=== PATIENT | female | born 1965 | race Caucasian/White ===

== ENCOUNTER 2016-12-17 09:38 | Emergency (ER) | END 2016-12-17 11:40 | disposition home or self-care (01) | DX: N30.00 Acute cystitis without hematuria (principal); E11.9 Type 2 diabetes mellitus without complications; I10 Essential (primary) hypertension; Z79.84 Long term (current) use of oral hypoglycemic drugs | CPT/HCPCS: 81003; Z7502 ==

== ENCOUNTER 2017-08-17 07:15 | Emergency (ER) | END 2017-08-17 08:51 | disposition home or self-care (01) ==

== ENCOUNTER 2018-09-11 20:41 | Emergency (ER) | payer OTHER ==
[~2018-09-11] VITALS: Ht 170.2 cm; Wt 69.8 kg
[~2018-09-11 20:41] MED LIST: ALBU18HF IH; BACTDS PO; BENA40TA56 PO; CARV6.2579 PO; CEPH-443 PO; CHOL500051 PO; CIPR500T4 PO; GABA300C16 PO; GLIP10TA14 PO; HYDR-3980 PO; INSU100I33 SQ; METF-849 PO; METF500T24 PO; METO-448 PO; NATE60TA PO; PHEN-538 PO; RANI150T35 PO; SIMV20TA20 PO; SITA100T11 PO; SUCR1TAB PO; ZOC10 PO
[2018-09-11 20:43] VITALS: Ht 170.2 cm; Wt 69.8 kg
[2018-09-11] MEDS ORDERED: hydrALAzine 20 MG INJ IV ONE (21:30)
[2018-09-12] MEDS ORDERED: ONDANSETRON 4 MG INJ IV PRN ×2 (02:00→02:30)
[2018-09-12] MEDS ORDERED: ACETAMINOPHEN 325 MG TAB PO PRN ×2 (02:00→02:30)
--- NOTE | 2018-09-12 02:11 | ERD ---
ER Documentation Chief Complaint Chief Complaint HEADACHE WITH DIZZINESS, NAUSEA; STARTING TODAY; NO FACIAL DROOP HPI This is a very pleasant 53-year female, with a headache dizzy nausea and numbness in the left side of her face along with mild chest pain. She noted that her blood pressure was severely elevated and that she is taking blood pressure medications. She denies any fevers or chills. She denies any nausea or vomiting. Denies any other current issues. Denies any focal neurological complaints. Headache is mild to moderate intensity. Chest pain is very mild and is since resolved upon arrival to the ER. ROS All systems reviewed and are negative except as per history of present illness. Medications Home Meds Reported Medications Metformin* (Glucophage*) 500 Mg Tab, 500 MG PO BID for 30 Days, #60 09/12/18 Insulin Glargine,Hum.rec.anlog (Basaglar Kwikpen U-100) 100 Unit/1 Ml Insuln.pen, 50 UNIT SQ QAM for 30 Days 09/12/18 Carvedilol* (Carvedilol*) 6.25 Mg Tablet, 6.25 MG PO BID for 30 Days, #60 09/12/18 Nateglinide* (Nateglinide*) 60 Mg Tablet, 60 MG PO TID for 30 Days, #90 09/12/18 Simvastatin (Simvastatin) 20 Mg Tablet, 20 MG PO DAILY for 30 Days, #30 09/12/18 Metformin Hcl* (Metformin Hcl*) 500 Mg Tablet, 500 MG PO WITH BREAKFAST DINNE, #60 TAB 07/10/15 Glipizide* (Glipizide*) 10 Mg Tablet, 10 MG PO BID, TAB 07/10/15 Albuterol Sulfate* (Ventolin HFA*) 18 Gm Hfa.aer.ad, 2 PUFF IH Q4H PRN for WHEEZING AND RESP DISTRESS, EA 05/03/14 Benazepril Hcl* (Benazepril Hcl*) 40 Mg Tablet, 40 MG PO DAILY, TAB 05/03/14 Discontinued Reported Medications Sitagliptin* (Januvia*) 100 Mg Tablet, 100 MG PO DAILY, #30 TAB 07/10/15 Simvastatin (Simvastatin) 10 Mg Tablet, 10 MG PO HS, TAB 05/03/14 Metoprolol Tartrate* (Lopressor*) 25 Mg Tab, 25 MG PO DAILY, TAB 05/03/14 Discontinued Scripts Ciprofloxacin Hcl* (Ciprofloxacin Hcl*) 500 Mg Tablet, 500 MG PO BID for 10 Days, TAB Prov:MAIKOL RANDALL PA-C 08/17/17 Phenazopyridine Hcl* (Pyridium*) 200 Mg Tab, 200 MG PO TID PRN for URINARY PAIN, #6 TAB Prov:HUMBERTO LINN PA-C 12/17/16 Cephalexin* (Keflex*) 500 Mg Capsule, 500 MG PO TID for 7 Days, CAP Prov:HUMBERTO LINN PA-C 12/17/16 Hydrocodone/Acetaminophen (Muir 10-325 Tablet) 1 Each Tablet, 1 TAB PO Q6H PRN for PAIN, #7 TAB Prov:ABDIRAHMAN NINO MD 12/06/15 Cephalexin* (Keflex*) 500 Mg Capsule, 500 MG PO QID for 7 Days, CAP Prov:ABDIRAHMAN NINO MD 12/06/15 Sulfamethoxazole-Trimethoprim* (Bactrim* DS) 800-160 Mg Tab, 1 TAB PO BID for 7 Days, TAB Prov:ABDIRAHMAN NINO MD 12/06/15 Sucralfate (Carafate) 1 G Tablet, 1 GM PO Q6, #60 TAB Prov:HUMBERTO JACOME 07/10/15 Ranitidine Hcl* (Zantac*) 150 Mg Tablet, 150 MG PO BID, #60 TAB Prov:HUMBERTO JACOME 07/10/15 Allergies Allergies: Coded Allergies: No Known Allergy (Unverified , 09/12/18) PMhx/Soc History of Surgery: Yes (TUBAL LIGATION) Anesthesia Reaction: No Hx Neurological Disorder: No Hx Respiratory Disorders: No Hx Cardiac Disorders: Yes (HTN) Hx Psychiatric Problems: No Hx Miscellaneous Medical Probl: Yes (DM) Hx Alcohol Use: No Hx Substance Use: No Hx Tobacco Use: No Smoking Status: Never smoker Physical Exam Vitals Vital Signs Date Temp Pulse Resp B/P (MAP) Pulse Ox O2 O2 Flow FiO2 Time Delivery Rate 09/11/18 96 19 122/75 100 Room Air 23:00 (91) 09/11/18 97.8 93 19 218/113 100 20:43 (148) Physical Exam Const: No acute distress Head: Atraumatic Eyes: Normal Conjunctiva ENT: Normal External Ears, Nose and Mouth. Neck: Full range of motion. No meningismus. Resp: Clear to auscultation bilaterally Cardio: Regular rate and rhythm, no murmurs Abd: Soft, non tender, non distended. Normal bowel sounds Skin: No petechiae or rashes Back: No midline or flank tenderness Ext: No cyanosis, or edema Neur: Awake and alert Psych: Normal Mood and Affect Result Diagram: 09/11/18213609/11/182206 Results 24 hrs Laboratory Tests Test 09/11/18 21:37 09/11/18 22:07 White Blood Count 7.1 10^3/ul Red Blood Count 3.90 10^6/ul Hemoglobin 11.8 g/dl Hematocrit 32.7 % Mean Corpuscular Volume 83.8 fl Mean Corpuscular Hemoglobin 30.3 pg Mean Corpuscular Hemoglobin Concent 36.1 g/dl Red Cell Distribution Width 11.5 % Platelet Count 182 10^3/UL Mean Platelet Volume 8.9 fl Immature Granulocytes % 0.300 % Neutrophils % 43.7 % Lymphocytes % 40.7 % Monocytes % 9.5 % Eosinophils % 5.4 % Basophils % 0.4 % Nucleated Red Blood Cells % 0.0 /100WBC Immature Granulocytes # 0.020 10^3/ul Neutrophils # 3.1 10^3/ul Lymphocytes # 2.9 10^3/ul Monocytes # 0.7 10^3/ul Eosinophils # 0.4 10^3/ul Basophils # 0.0 10^3/ul Nucleated Red Blood Cells # 0.0 10^3/ul Prothrombin Time 13.5 Sec Prothrombin Time Ratio 1.1 INR International Normalized Ratio 1.02 Activated Partial Thromboplast Time 29.4 Sec Sodium Level 130 mmol/L Potassium Level 3.5 mmol/L Chloride Level 94 mmol/L Carbon Dioxide Level 29 mmol/L Anion Gap 7 Blood Urea Nitrogen 8 mg/dl Creatinine 0.40 mg/dl Est Glomerular Filtrat Rate mL/min > 60 mL/min Glucose Level 111 mg/dl Calcium Level 9.3 mg/dl Troponin I < 0.012 ng/ml Current Medications Medications Dose Sig/Branden Start Time Status Last (Trade) Ordered Route PRN Stop Time Admin Dose Reason Admin Hydralazine 20 mg ONCE ONCE 09/11/18 DC 8/5/19 HCl IV 21:30 09/11/18 21:35 (Apresoline) 21:31 Ondansetron 4 mg ER BRIDGE 09/12/18 HCl (Zofran PRN IV 02:00 09/13/18 Inj) NAUSEA/VOMITI 01:59 NG 650 mg ER BRIDGE 09/12/18 Acetaminophen PRN PO 02:00 09/13/18 (Tylenol .MILD PAIN 01:59 Tab) 1-3 OR TEMP Sodium 500 ml @ Q1H ONCE 09/12/18 UNV Chloride 500 mls/hr IV 02:30 09/12/18 03:29 Benazepril 40 mg DAILY PO 09/12/18 UNV HCl 09:00 (Lotensin) Carvedilol 6.25 mg BID PO 09/12/18 UNV (Coreg) 09:00 Insulin 50 unit QAM SC 09/12/18 UNV Glargine 09:00 (Lantus) 20 mg DAILY PO 09/12/18 UNV Miscellaneous 09:00 Information IV Flush 3 ml PER 09/12/18 UNV (NS 3 ml) PROTOCOL IV 02:30 Ondansetron 4 mg Q6H PRN 09/12/18 UNV HCl (Zofran IV 02:30 Inj) NAUSEA/VOMITI NG Aspirin 81 mg DAILY PO 09/12/18 UNV (Aspirin) 09:00 1 tab Q5M PRN 09/12/18 UNV Nitroglycerin SL .CHEST 02:30 PAIN (Nitroglyceri n (Sl Tab) 0.4 Mg) 650 mg Q6H PRN 09/12/18 UNV Acetaminophen PO .PAIN 1-3 02:30 (Tylenol OR TEMP Tab) Morphine 2 mg Q4H PRN 09/12/18 UNV Sulfate IV .PAIN 02:30 (morphine) 7-10 Docusate 100 mg Q12H PRN 09/12/18 UNV Sodium PO 02:30 (Colace) .CONSTIPATION Bisacodyl 5 mg DAILY PRN 09/12/18 UNV (Dulcolax) PO 02:30 .CONSTIPATION Discontinue ONCE ONCE 09/12/18 UNV Miscellaneous current oral XX 02:30 09/12/18 sulfonylur... 02:31 Information (* Miscellaneous Pharmacy Order) Diagnostic 1 ea 02 XX 8/7/19 UNV Test (Pha) 02:00 (Accu-Chek) ONCE ONCE 09/12/18 UNV Miscellaneous HYPOGLYCEMIA XX 02:30 09/12/18 PROTOCOL 02:31 Information w... (* Miscellaneous Pharmacy Order) Insulin NOVOLOG WITH MEALS 09/12/18 UNV Aspart *MILD* BEDTIME SC 08:00 (Novolog ALGORITHM Insulin Pen) Discontinue ONCE ONCE 09/12/18 UNV Miscellaneous all previ... XX 02:30 09/12/18 02:31 Information (* Miscellaneous Pharmacy Order) Procedures/MDM EKG: Rate/Rhythm: Normal Sinus Rhythm QRS, ST, T-waves: No changes consistent w/ acute ischemia Impression: No evidence of ischemia or arrhythmia Chest X-ray 1V Interpreted by me: Soft Tissue: No acute abnormalities Bones: No acute abnormalities Mediastinum/Cardiac Silhouette/Lungs: No acute abnormalities Medical decision making: Patient's symptoms are concerning for cardiac cause will require inpatient workup and continuous monitoring. Further w/u for ischemia, arrhythmia, PE or dissection will be deferred to the inpatient team. Accepting Care Team: Current data and ongoing care discussed. Time: 2:01 AM Primary Provider: Dr. Rosas Consulting: Deferred to inpatient team Outstanding Data: none Departure Diagnosis: Primary Impression: Chest pain Chest pain type: unspecified Qualified Codes: R07.9 - Chest pain, unspecified Condition: Serious HUMBERTO JACOME Sep 12, 2018 02:11
[2018-09-12] MEDS ORDERED: DOCUSATE SODIUM 100 MG CAP PO PRN (02:30)
[2018-09-12] MEDS ORDERED: SOD CHLORIDE 0.9% 500 ML IV ONE (02:30)
[2018-09-12] MEDS ORDERED: BISACODYL (EC) 5 MG TAB PO PRN (02:30)
[2018-09-12] MEDS ORDERED: NACL 0.9% 3 ML SYG IV SCH (02:30)
[2018-09-12] MEDS ORDERED: morphine 2 MG INJ IV PRN (02:30)
[2018-09-12] MEDS ORDERED: NITROGLYCERIN (SL) 0.4 MG TAB SL PRN (02:30)
[2018-09-12] MEDS ORDERED: GLUCOSE GEL 15 GRAM TUBE BUCCAL PRN (03:00)
[2018-09-12] MEDS ORDERED: GLUCOSE GEL 15 GRAM TUBE PO PRN ×2 (03:00)
[2018-09-12] MEDS ORDERED: DEXTROSE 50% 50 ML SYRINGE IV PRN ×2 (03:00)
[2018-09-12] MEDS ORDERED: GLUCAGON 1 MG INJ IM PRN (03:00)
--- NOTE | 2018-09-12 06:19 | HP ---
Date/Time of Note Date/Time of Note DATE: 09/12/18 TIME: 05:53 Assessment/Plan VTE Prophylaxis SCD applied (from Nsg): Yes Pharmacological prophylaxis: NA/contraindicated Pharm contraindication: low risk/ambulating Lines/Catheters IV Catheter Type (from Nrsg): Saline Lock Assessment/Plan Hospital Course This is a 53-year-old female being admitted to the telemetry floor for: #1 chest pain: Rule out ACS versus uncontrolled hypertension: Patient did present blood pressures in the 200s. Will check cardiac enzymes x3, first that was negative. Check echocardiogram. Cardiology consultation Dr. Knapp will check hemoglobin A 1C, panel, TSH PRN nitro/morphine. #2 left-sided numbness with headache: Possibly secondary to underlying uncontrolled hypertension versus neurologic etiology. CT the brain was negative for any acute abnormalities. She does not have any focal neurological deficits currently on exam. Will check an MRI of the brain, cervical spine as patient still continues to have left-sided numbness despite blood pressure being under better control at this point. #3 accelerated hypertension: Patient presented with systolic blood pressure in the 200s. Will resume carvedilol and benazepril. On monitor patient blood pressure closely. #4 diabetes mellitus: We will resume home insulin, will hold home oral medications. Will check hemoglobin A1c, insulin sliding scale #5 Hyperlipidemia: Continue statin, check lipid panel #6 DVT GI prophylaxis: SCDs, no GI prophylaxis indicated Further treatment strategy will be implemented as per the clinical course Result Diagram: 09/11/18213609/11/187 Results 24hrs Laboratory Tests Test 09/11/18 21:37 09/11/18 22:07 09/12/18 03:12 White Blood Count 7.1 # Red Blood Count 3.90 L Hemoglobin 11.8 L Hematocrit 32.7 #L Mean Corpuscular Volume 83.8 Mean Corpuscular Hemoglobin 30.3 Mean Corpuscular Hemoglobin Concent 36.1 Red Cell Distribution Width 11.5 Platelet Count 182 Mean Platelet Volume 8.9 Immature Granulocytes % 0.300 Neutrophils % 43.7 Lymphocytes % 40.7 Monocytes % 9.5 Eosinophils % 5.4 Basophils % 0.4 Nucleated Red Blood Cells % 0.0 Immature Granulocytes # 0.020 Neutrophils # 3.1 Lymphocytes # 2.9 Monocytes # 0.7 Eosinophils # 0.4 Basophils # 0.0 Nucleated Red Blood Cells # 0.0 Prothrombin Time 13.5 Prothrombin Time Ratio 1.1 INR International Normalized Ratio 1.02 Activated Partial Thromboplast Time 29.4 Sodium Level 130 L Potassium Level 3.5 Chloride Level 94 L Carbon Dioxide Level 29 Anion Gap 7 Blood Urea Nitrogen 8 Creatinine 0.40 L Est Glomerular Filtrat Rate mL/min > 60 Glucose Level 111 Calcium Level 9.3 Troponin I < 0.012 < 0.012 Creatine Kinase 72 Creatine Kinase Index 1.4 Creatinine Kinase MB (Mass) 0.98 HPI/ROS Admit Date/Time Admit Date/Time Hx of Present Illness Chief complaint: Elevated blood pressure, headache This is a 53-year female who presents to the emergency department with comp laints of weakness along with left-sided numbness and chest pain that started at 1 PM yesterday. Patient reports that her blood pressures were noted to be high at home. She does report that she has been dealing with headaches over the last few days. She denies any nausea vomiting or diarrhea. She denies any trouble with her speech or weakness of her bilateral upper or lower extremities. Allergies: NKDA Medications: Benazepril 40 mg p.o. daily Carvedilol 6.25 mg p.o. twice daily Lantus 50 units subcu a.m. Simvastatin 20 mg p.o. daily Glipizide 10 mg p.o. twice daily Ventolin HFA 18 g 2 puffs every 4 as needed Metformin 500 mg breakfast and dinner Nateglinide 60 mg p.o. 3 times daily ROS Const: As per HPI Eyes : No pain discharge or redness or change in visual acuity ENT: No pain, sore throat, congestion, congestion, dysphagia or discharge Respiratory: No shortness of breath, cough, sputum, wheezing, or pleuritic pain Cardiovascular: As per HPI GI : no change in appetite, abdominal pain, nausea, vomiting, diarrhea, constipation, or change in the color his stool Genitourinary: No dysuria, hematuria, flank pain , discharge or CVA tenderness Musculoskeletal: No joint pain, back pain, neck pain, restricted range of motion in neck or joints Skin: No rash, bruising or hives Neuro: As per HPI Endocrine: No polyuria, polydipsia, temperature intolerance Psych: No hallucination, depression, anxiety or suicidal ideation PMH/Family/Social Past Medical History Diabetes mellitus Hypertension Hyperlipidemia Gastritis Medications Current Medications Ondansetron HCl (Zofran Inj) 4 mg ER BRIDGE PRN IV NAUSEA/VOMITING; Start 09/12/18 at 02:00; Stop 09/13/18 at 01:59 Acetaminophen (Tylenol Tab) 650 mg ER BRIDGE PRN PO .MILD PAIN 1-3 OR TEMP; Start 09/12/18 at 02:00; Stop 09/13/18 at 01:59 Benazepril HCl (Lotensin) 40 mg DAILY PO ; Start 09/12/18 at 09:00 Carvedilol (Coreg) 6.25 mg BID PO ; Start 09/12/18 at 09:00 Insulin Glargine (Lantus) 50 units QAM SC ; Start 09/12/18 at 09:00 Atorvastatin Calcium (Lipitor) 10 mg DAILY@21 PO ; Start 09/12/18 at 21:00 IV Flush (NS 3 ml) 3 ml PER PROTOCOL IV ; Start 09/12/18 at 02:30 Ondansetron HCl (Zofran Inj) 4 mg Q6H PRN IV NAUSEA/VOMITING; Start 09/12/18 at 02:30 Aspirin (Aspirin) 81 mg DAILY PO ; Start 09/12/18 at 09:00 Nitroglycerin (Nitroglycerin (Sl Tab) 0.4 Mg) 1 tab Q5M PRN SL .CHEST PAIN; Start 09/12/18 at 02:30 Acetaminophen (Tylenol Tab) 650 mg Q6H PRN PO .PAIN 1-3 OR TEMP; Start 09/12/18 at 02:30 Morphine Sulfate (morphine) 2 mg Q4H PRN IV .PAIN 7-10; Start 09/12/18 at 02:30 Docusate Sodium (Colace) 100 mg Q12H PRN PO .CONSTIPATION; Start 09/12/18 at 02:30 Bisacodyl (Dulcolax) 5 mg DAILY PRN PO .CONSTIPATION; Start 09/12/18 at 02:30 Diagnostic Test (Pha) (Accu-Chek) 1 ea 02 XX ; Start 09/13/18 at 02:00 Insulin Aspart (Novolog Insulin Pen) NOVOLOG *MILD* ALGORITHM WITH MEALS BEDTIME SC ; Start 09/12/18 at 08:00 Miscellaneous Information 1 ea NOTE XX ; Start 09/12/18 at 03:00 Glucose (Glutose) 15 gm Q15M PRN PO DECREASED GLUCOSE; Start 09/12/18 at 03:00 Glucose (Glutose) 22.5 gm Q15M PRN PO DECREASED GLUCOSE; Start 09/12/18 at 03:00 Dextrose (D50w Syringe) 25 ml Q15M PRN IV DECREASED GLUCOSE; Start 09/12/18 at 03:00 Dextrose (D50w Syringe) 50 ml Q15M PRN IV DECREASED GLUCOSE; Start 09/12/18 at 03:00 Glucagon (Glucagen) 1 mg Q15M PRN IM DECREASED GLUCOSE; Start 09/12/18 at 03:00 Glucose (Glutose) 15 gm Q15M PRN BUCCAL DECREASED GLUCOSE; Start 09/12/18 at 03:00 Coded Allergies: No Known Allergy (Unverified , 09/12/18) Past Surgical History Bilateral cataract surgery Family History Significant Family History: no pertinent family hx Social History Alcohol Use: none Smoking Status: Never smoker Drug Use: none Exam/Review of Systems Vital Signs Vitals Vital Signs Date Temp Pulse Resp B/P (MAP) Pulse Ox O2 O2 Flow FiO2 Time Delivery Rate 09/12/18 97 18 133/87 99 Room Air 03:30 (102) 09/11/18 97.8 20:43 Exam Exam General: Patient is currently lying in bed in no acute distress HEENT: Atraumatic, normocephalic. The pupils are equal, round and reactive. Extraocular motor are intact Neck: Supple with full range of motion. No rigidity or meningismus Chest: Nontender Lungs: Clear to auscultation bilaterally no crackles rales or wheezing Heart: Normal S1-S2, Regular rhythm and rate. No murmur, S3, or S4 Abdomen: Soft , nontender, nondistended , bowel sounds are present. No guarding no rebound tenderness , No masses or organomegaly. No costovertebral temporal angle mass Extremities: Normal to inspection, no edema no cyanosis Neurologic: Normal mental status, speech normal, cranial nerves II through XII are intact, motor and sensory are intact, no focal neurologic deficits or weakness, subjective numbness of the left upper and lower extremity Additional Comments EKG: Normal sinus rhythm at approximately 78 bpm, no ST or T wave abnormals concerning for acute ischemia PROCEDURE: CT Brain without contrast. CLINICAL INDICATION: Headache. TECHNIQUE: A CT of the brain was performed utilizing axial sections from the skull base through the vertex without contrast. Multiplanar re-formations were generated. DICOM images are available. Images were reviewed on a high-resolution PACS workstation. CTDIvol: 38.38 mGy. DLP: 634.23 mGy-cm. One or more of the following dose reduction techniques were used: - Automated exposure control. - Adjustment of the mA and/or kV according to patient size. - Use of iterative reconstruction technique. COMPARISON: None available FINDINGS: There is no cerebral volume loss. No hydrocephalus is seen. There is no mass effect. No acute intracranial hemorrhage is identified. There is no extra-axial collection. Luna-white matter differentiation is preserved. There is patchy low attenuation in the supratentorial white matter, a nonspecific finding which most likely represents the sequela of mild chronic microvascular ischemic disease. There are minimal arterial calcifications. There is no significant mucosal disease in the paranasal sinuses. The visualized mastoid air cells are clear. The ossesous structures are unremarkable. The extracranial soft tissues are unremarkable. IMPRESSION: No acute intracranial pathology. Mild chronic microvascular ischemic changes. RPTAT: HTAR .Rober Clark MD, MD Date Time Electronically viewed and signed by .Rober Clark MD, on 09/12/2018 00:22 .R/ CC: HUMBERTO JACOME [id number] KAN PIERCE Sep 12, 2018 06:13
[2018-09-12] MEDS ORDERED: INSULIN GLARGINE [LANTus] (100 UNITS/ML) SYG SC SCH (09:00)
[2018-09-12] MEDS ORDERED: ASPIRIN 81 MG TAB PO SCH (09:00)
[2018-09-12] MEDS ORDERED: BENAZEPRIL 40 MG TAB PO SCH (09:00)
[2018-09-12] MEDS: INSULIN ASPART [NOVOLOG] 3 ML PEN SC SCH ×2 (10:55→12:49)
--- NOTE | 2018-09-12 11:51 | QN ---
Documentation Comment 53-year-old female with a history of hypertension, dyslipidemia, type 2 di abetes, admitted with left-sided numbness, headache and chest pain. Patient's blood pressure on arrival was 218/113. Head CT is negative for any acute intracranial events. Continue aspirin prophylaxis. Currently patient with no symptoms. Serial troponin x3, EKG negative for ACS. Follow-up cardiology recommendations. A1c noted. Add bolus insulin. Continue home Lantus dose. Patient symptoms are also somewhat consistent with neuropathy secondary to underlying diabetes. Will do gabapentin trial. We will also obtain some vitamin D, B12 levels. Patient is seen in collaboration with Dr. Johnston. JOSE M SANTIAGO NP Sep 12, 2018 11:51
[2018-09-12] MEDS ORDERED: INSULIN ASPART [NOVOLOG] 3 ML PEN SC SCH (12:00)
[2018-09-12] MEDS ORDERED: GABAPENTIN 100 MG CAP PO SCH (13:00)
--- NOTE | 2018-09-12 13:08 | RADRPT ---
Echocardiogram Report Patient Name: ROXANA HERNANDEZPatient ID: [id number] : 1965 (53y 2m)Study Date: 09/12/2018 7:06:28 AM Gender: FAccession #: [id number] Tech: NEIL Hunter Location: [facility] Ref.Physician: KAN PIERCE Height(Cm): BSA: Weight(Kg): Quality: AdequateOrder Physician: KAN PIERCE Account #: Procedures: Echocardiographic Report: Transthoracic echocardiogram with complete 2D, M-Mode, and doppler examination. Indications: Chest Pain. Measurements: 2D/M Mode Doppler Measurement Value Normal Range Measurement Value Normal Range LVIDd 2D 3.9 [ 3.8 - 5.2 ] cm AV Peak Odilon 1.0 [ 100.0 - 170.0 ] cm/sec LVIDs 2D 2.7 [ 2.2 - 3.5 ] cm AV Peak PG 4.0 [ 2.0 - 9.0 ] mmHg IVSd 2D 1.0 [ 0.6 - 0.9 ] cm LVOT Peak Odilon 0.9 [ 70.0 - 110.0 ] cm/sec IVS/LVPW 2D 1.1 ratio LVOT Peak PG 3.0 [ 2.0 - 6.0 ] mmHg AoR Diam 2D 3.0 [ 2.3 - 3.1 ] cm TR Peak Odilon 2.1 [ 100.0 - 280.0 ] cm/sec LA/Ao 2D 1 ratio TR Peak PG 17.0 mmHg LA Dimen 2D 3.0 [ 2.7 - 3.8 ] cm RVSP 20.0 [ 10.0 - 36.0 ] mmHg RA Pressure 3.0 mmHg Findings: Left Ventricle: Normal left ventricular systolic function. Normal left ventricular cavity size. Mild concentric left ventricular hypertrophy. Ejection fraction is visually estimated at 60 %. Tissue Doppler/Mitral Doppler indices are within normal limits. Right Ventricle: Normal right ventricular size. Normal right ventricular systolic function. Left Atrium: The left atrium is normal in size. Right Atrium: The right atrium is normal in size. Mitral Valve: Normal appearance and function of the mitral valve with trace physiologic regurgitation. Aortic Valve: Aortic sclerosis without significant stenosis. No aortic regurgitation. Tricuspid Valve: Normal appearance and function of the tricuspid valve with trace physiologic regurgitation. Normal right ventricular systolic pressure. The estimated Peak RVSP is 20 mmHg. Pulmonic Valve: Pulmonic valve not well visualized. Pericardium: Normal pericardium with no significant pericardial effusion. Aorta: Normal aortic root. IVC: Normal size and normal respiratory collapse consistent with normal right atrial pressure. Conclusions: Normal left ventricular systolic function. Normal left ventricular cavity size. Mild concentric left ventricular hypertrophy. Ejection fraction is visually estimated at 60 %. Tissue Doppler/Mitral Doppler indices are within normal limits. No significant valvular stenosis or regurgitation seen. The estimated Peak RVSP is 20 mmHg. Normal size and normal respiratory collapse consistent with normal right atrial pressure. Electronically Signed By: Jamison Brasher 2018-09-12 13:08:28 PDT
--- NOTE | 2018-09-12 14:15 | PDOCDIS ---
Discharge Instructions CONDITION [id number] Patient Condition: [id number] Stable HOME CARE INSTRUCTIONS: [id number] Your diet recommendation is: [id number] Carbohydrate controlled/low-cholesterol diet. FOLLOW UP/APPOINTMENTS Follow-up Plan 1.YOU HAVE RECEIVED A MEDICAL TREATMENT AT [facility] AND YOUR CONDITION IS STABLE AND CAN BE FOLLOWED UP OUTPATIENT. FURTHER FOLLOW-UPS CAN WAIT UNTIL YOU ARE SEEN IN YOUR DOCTORS OFFICE WITHIN THE NEXT 1-2 DAYS. IT IS YOUR RESPONSIBILITY TO MAKE AN APPOINTMENT FOR FOLLOW-UP CARE. IF YOU HAVE A PRIMARY DOCTOR --you should call your primary doctor in 1-2 days and schedule an appointment IF YOU DO NOT HAVE A PRIMARY DOCTOR YOU CAN CALL OUR PHYSICIAN REFERRAL HOTLINE AT IF YOU CAN NOT AFFORD TO SEE A PHYSICIAN YOU CAN CHOSE FROM THE FOLLOWING [facility] [address] [facility] [address] [facility] [address] [facility] [address] [facility] [address] [facility]. [address]. Call 911 or go to the nearest emergency room if experiencing loss of consciousness, dizziness, chest pain, shortness of breath, vomiting/abdominal pain, speech difficulties, motor weakness or any unusual symptoms. JOSE M SANTIAGO NP Sep 12, 2018 14:15
--- NOTE | 2018-09-12 14:24 | DS ---
Date/Time of Note Date/Time of Note DATE: 09/12/18 TIME: 14:22 Discharge Summary Admission/Discharge Info Admit Date/Time Discharge Date/Time Discharge Diagnosis Chest pain/numbness, likely secondary to underlying diabetic neuropathy/vitamin D deficiency. ACS ruled out. Hypertension dyslipidemia type 2 diabetes Diabetic neuropathy Vitamin D deficiency Patient Condition: Stable Consults Procedures 09/11/2018: Brain CT: IMPRESSION: No acute intracranial pathology. Mild chronic microvascular ischemic changes. 09/12/2018: 2D echocardiogram: Conclusions: Normal left ventricular systolic function. Normal left ventricular cavity size. Mild concentric left ventricular hypertrophy. Ejection fraction is visually estimated at 60 %. Tissue Doppler/Mitral Doppler indices are within normal limits. No significant valvular stenosis or regurgitation seen. The estimated Peak RVSP is 20 mmHg. Normal size and normal respiratory collapse consistent with normal right atrial pressure. Electronically Signed By: Amari Martinez 2018-09-12 13:08:28 PDT Dictated By: AMARI MARTINEZ Signed By: AMARI MARTINEZ Hospital Course 53-year-old female with a history of hypertension, dyslipidemia, type 2 diabe simona, admitted with left-sided numbness, headache and chest pain. Patient's blood pressure on arrival was 218/113. Patient's head CT was negative for any acute intracranial events. Chest x-ray negative for acute cardiopulmonary disease. Patient has 3 sets of negative troponin. Her EKG without any ST or T wave changes. Patient's 2D echocardiogram normal. Patient was evaluated by deck lid fitter and no further inpatient cardiac work-up was needed. Her chest pain completely resolved. Patient was also noted with poorly controlled diabetes with A1c 11.0 with likely diabetic neuropathy. Patient responded to gabapentin and PRN pain medication. She is now feeling back to normal and is eager to be discharged home. At this time, we will send patient home with gabapentin and vitamin D supplementation as she was also noted with a low vitamin D level. Most likely culprit of chest pain and numbness is underlying neuropathy with diabetes and low vitamin D level. Approximately 60 m spent on coordinating the discharge on this patient. Patient was seen in collaboration with Dr. Preston Garcia Active Scripts Cholecalciferol (Vitamin D3) (Vitamin D3) 50,000 Unit Capsule, 61155 UNIT PO .QWEDNESDAY, #12 CAP Prov:SANTIAGO,JOSE M V. WIDE LOAD ESCORT 09/12/18 Gabapentin* (Gabapentin*) 300 Mg Capsule, 300 MG PO TID, #90 CAP Prov:SANTIAGO,JOSE M V. WIDE LOAD ESCORT 09/12/18 Reported Medications Insulin Glargine,Hum.rec.anlog (Basaglar Kwikpen U-100) 100 Unit/1 Ml Insuln.pen, 50 UNIT SQ QAM for 30 Days 09/12/18 Carvedilol* (Carvedilol*) 6.25 Mg Tablet, 6.25 MG PO BID for 30 Days, #60 09/12/18 Nateglinide* (Nateglinide*) 60 Mg Tablet, 60 MG PO TID for 30 Days, #90 09/12/18 Simvastatin (Simvastatin) 20 Mg Tablet, 20 MG PO DAILY for 30 Days, #30 09/12/18 Metformin Hcl* (Metformin Hcl*) 500 Mg Tablet, 500 MG PO WITH BREAKFAST DINNE, #60 TAB 07/10/15 Glipizide* (Glipizide*) 10 Mg Tablet, 10 MG PO BID, TAB 07/10/15 Albuterol Sulfate* (Ventolin HFA*) 18 Gm Hfa.aer.ad, 2 PUFF IH Q4H PRN for WHEEZING AND RESP DISTRESS, EA 05/03/14 Benazepril Hcl* (Benazepril Hcl*) 40 Mg Tablet, 40 MG PO DAILY, TAB 05/03/14 Discontinued Reported Medications Metformin* (Glucophage*) 500 Mg Tab, 500 MG PO BID for 30 Days, #60 09/12/18 Sitagliptin* (Januvia*) 100 Mg Tablet, 100 MG PO DAILY, #30 TAB 07/10/15 Simvastatin (Simvastatin) 10 Mg Tablet, 10 MG PO HS, TAB 05/03/14 Metoprolol Tartrate* (Lopressor*) 25 Mg Tab, 25 MG PO DAILY, TAB 05/03/14 Discontinued Scripts Ciprofloxacin Hcl* (Ciprofloxacin Hcl*) 500 Mg Tablet, 500 MG PO BID for 10 Days, TAB Prov:MAIKOL RANDALL PA-C 08/17/17 Phenazopyridine Hcl* (Pyridium*) 200 Mg Tab, 200 MG PO TID PRN for URINARY PAIN, #6 TAB Prov:HUMBERTO LINN PA-C 12/17/16 Cephalexin* (Keflex*) 500 Mg Capsule, 500 MG PO TID for 7 Days, CAP Prov:HUMBERTO LINN PA-C 12/17/16 Hydrocodone/Acetaminophen ([place] 10-325 Tablet) 1 Each Tablet, 1 TAB PO Q6H PRN for PAIN, #7 TAB Prov:ABDIRAHMAN NINO MD 12/06/15 Cephalexin* (Keflex*) 500 Mg Capsule, 500 MG PO QID for 7 Days, CAP Prov:ABDIRAHMAN NINO MD 12/06/15 Sulfamethoxazole-Trimethoprim* (Bactrim* DS) 800-160 Mg Tab, 1 TAB PO BID for 7 Days, TAB Prov:ABDIRAHMAN NINO MD 12/06/15 Sucralfate (Carafate) 1 G Tablet, 1 GM PO Q6, #60 TAB Prov:HUMBERTO JACOME 07/10/15 Ranitidine Hcl* (Zantac*) 150 Mg Tablet, 150 MG PO BID, #60 TAB Prov:HUMBERTO JACOME 07/10/15 Follow-up Plan 1.YOU HAVE RECEIVED A MEDICAL TREATMENT AT [facility] AND YOUR CONDITION IS STABLE AND CAN BE FOLLOWED UP OUTPATIENT. FURTHER FOLLOW-UPS CAN WAIT UNTIL YOU ARE SEEN IN YOUR DOCTORS OFFICE WITHIN THE NEXT 1-2 DAYS. IT IS YOUR RESPONSIBILITY TO MAKE AN APPOINTMENT FOR FOLLOW-UP CARE. IF YOU HAVE A PRIMARY DOCTOR --you should call your primary doctor in 1-2 days and schedule an appointment IF YOU DO NOT HAVE A PRIMARY DOCTOR YOU CAN CALL OUR PHYSICIAN REFERRAL HOTLINE AT IF YOU CAN NOT AFFORD TO SEE A PHYSICIAN YOU CAN CHOSE FROM THE FOLLOWING [facility] [place] [address] [facility]. [facility] [address] [facility] [address] [facility] [address] [facility] [address] [facility]. [facility]. [address] [place] 2. Call 911 or go to the nearest emergency room if experiencing loss of consciousness, dizziness, chest pain, shortness of breath, vomiting/abdominal pain, speech difficulties, motor weakness or any unusual symptoms. Primary Care Provider Santo Dixon Pending Labs Laboratory Tests Test 09/11/18 21:37 09/11/18 22:07 09/12/18 03:12 09/12/18 05:41 White Blood 7.1 Count 10^3/ul (4.8-10 .8) Red Blood 3.90 Count 10^6/ul (4.20-5 .40) Hemoglobin 11.8 g/dl (12.0-16.0 ) Hematocrit 32.7 % (37.0-47.0) Mean 83.8 Corpuscular fl (82.0-101.0) Volume Mean 30.3 Corpuscular pg (29.0-33.0) Hemoglobin Mean 36.1 Corpuscular g/dl (32.0-37.0 Hemoglobin Conc ) ent Red Cell 11.5 Distribution % (11.5-14.5) Width Platelet Count 182 10^3/UL (140-41 5) Mean Platelet 8.9 Volume fl (7.4-10.4) Immature 0.300 Granulocytes % % (0.001-0.429) Neutrophils % 43.7 % (39.0-77.0) Lymphocytes % 40.7 % (15.0-51.0) Monocytes % 9.5 % (0.0-11.0) Eosinophils % 5.4 % (0.0-7.0) Basophils % 0.4 % (0.0-2.0) Nucleated Red 0.0 Blood Cells % /100WBC (0.0-0. 0) Immature 0.020 Granulocytes # 10^3/ul (0.0-0. 031) Neutrophils # 3.1 10^3/ul (1.6-7. 5) Lymphocytes # 2.9 10^3/ul (0.8-2. 9) Monocytes # 0.7 10^3/ul (0.3-0. 9) Eosinophils # 0.4 10^3/ul (0.0-0. 5) Basophils # 0.0 10^3/ul (0.0-0. 1) Nucleated Red 0.0 Blood Cells # 10^3/ul (0.0-0. 0) Prothrombin 13.5 Time Sec (11.9-14.9 ) Prothrombin 1.1 Time Ratio INR 1.02 International Normalized Rati o Activated 29.4 Partial Thrombo Sec (23.0-35.0 plast Time ) Sodium Level 130 mmol/L (135-14 4) Potassium 3.5 Level mmol/L (3.5-5. 1) Chloride Level 94 mmol/L (97-110 ) Carbon Dioxide 29 Level mmol/L (21-31) Anion Gap 7 (5-13) Blood Urea 8 mg/dl (7-20) Nitrogen Creatinine 0.40 mg/dl (0.44-1. 00) Est Glomerular > 60 Filtrat mL/min (>60) Rate mL/min Glucose Level 111 mg/dl (70-220) Calcium Level 9.3 mg/dl (8.4-10. 2) Troponin I < 0.012 < 0.012 ng/ml (0.000-0 ng/ml (0.000-0 .120) .120) Creatine 72 Kinase IU/L (23-200) Creatine Kinase 1.4 Index Creatinine 0.98 Kinase MB ng/ml (0.0-2.4 (Mass) ) Vitamin D 19.5 1,25-Dihydroxy ng/ml (30-100) Test 09/12/18 05:45 09/12/18 10:23 09/12/18 10:52 09/12/18 12:47 White Blood 6.8 Count 10^3/ul (4.8-10 .8) Red Blood 4.09 Count 10^6/ul (4.20-5 .40) Hemoglobin 12.5 g/dl (12.0-16.0 ) Hematocrit 34.6 % (37.0-47.0) Mean 84.6 Corpuscular fl (82.0-101.0) Volume Mean 30.6 Corpuscular pg (29.0-33.0) Hemoglobin Mean 36.1 Corpuscular g/dl (32.0-37.0 Hemoglobin Conc ) ent Red Cell 11.7 Distribution % (11.5-14.5) Width Platelet Count 210 10^3/UL (140-41 5) Mean Platelet 9.0 Volume fl (7.4-10.4) Immature 0.300 Granulocytes % % (0.001-0.429) Neutrophils % 58.8 % (39.0-77.0) Lymphocytes % 28.0 % (15.0-51.0) Monocytes % 7.6 % (0.0-11.0) Eosinophils % 4.9 % (0.0-7.0) Basophils % 0.4 % (0.0-2.0) Nucleated Red 0.0 Blood Cells % /100WBC (0.0-0. 0) Immature 0.020 Granulocytes # 10^3/ul (0.0-0. 031) Neutrophils # 4.0 10^3/ul (1.6-7. 5) Lymphocytes # 1.9 10^3/ul (0.8-2. 9) Monocytes # 0.5 10^3/ul (0.3-0. 9) Eosinophils # 0.3 10^3/ul (0.0-0. 5) Basophils # 0.0 10^3/ul (0.0-0. 1) Nucleated Red 0.0 Blood Cells # 10^3/ul (0.0-0. 0) Sodium Level 140 mmol/L (135-144 ) Potassium 4.0 Level mmol/L (3.5-5.1 ) Chloride Level 106 mmol/L (97-110) Carbon Dioxide 27 Level mmol/L (21-31) Anion Gap 7 (5-13) Blood Urea 5 mg/dl (7-20) Nitrogen Creatinine 0.37 mg/dl (0.44-1.0 0) Est Glomerular > 60 Filtrat mL/min (>60) Rate mL/min Glucose Level 138 mg/dl (70-220) Hemoglobin A1c 11.0 % (0-5.9) Calcium Level 9.3 mg/dl (8.4-10.2 ) Magnesium 2.0 Level mg/dl (1.7-2.5) Iron Level 82 ug/dl (35-150) Total Iron 332 Binding ug/dl (241-421) Capacity Percent Iron 25 % Saturation SAT (22-52) Ferritin 223.0 ng/ml (11.1-264 .0) Total 0.8 Bilirubin mg/dl (0.2-1.3) Direct 0.00 Bilirubin mg/dl (0.00-0.2 0) Indirect 0.8 Bilirubin mg/dl (0-1.1) Aspartate Amino 21 IU/L (15-46) Transf (AST/SGO T) Alanine 23 IU/L (13-69) Aminotransferas e (ALT/SGPT) Alkaline 105 Phosphatase IU/L (42-121) Total Protein 7.4 g/dl (6.1-8.1) Albumin 4.1 g/dl (3.3-4.9) Globulin 3.30 g/dl (1.3-3.2) Albumin/Globuli 1.24 n Ratio Triglycerides 113 Level mg/dl (0-149) Cholesterol 160 Level mg/dl (100-200) LDL 91 mg/dl Cholesterol, Calculated HDL 46 Cholesterol mg/dl (37-92) Cholesterol/HDL 3.4 RATIO Ratio Thyroid 1.850 Stimulating MIU/L (0.465-4. Hormone (TSH) 680) Creatine 60 Kinase IU/L (23-200) Creatine Kinase 1.3 Index Creatinine 0.76 Kinase MB ng/ml (0.0-2.4 (Mass) ) Troponin I < 0.012 ng/ml (0.000-0 .120) Bedside 149 168 Glucose mg/dL (70-220) mg/dL (70-220) JOSE M SANTIAGO NP Sep 12, 2018 14:24
[2018-09-12 14:30] VITALS: BP 118/67; PULSE 88; RESP 18
--- NOTE | 2018-09-12 14:42 | CONS ---
Assessment/Plan Assessment/Plan Hospital Course (Demo Recall) Chest/neck/arm symptoms: From the pt's description and known prior symptoms which started after a fall, suspect she is having radiculopathy symptoms instead of cardiac. At baseline she is very active and asymptomatic and objectively no signs of ischemia here including normal EKG and troponins. However she does have CAD risk factors and we discussed stress testing inpt vs outpt to make sure . She prefers outpt workup as she is asymptomatic now HTN crisis: BP 218/113 on admission now low 100s on home meds without changes. May have been exacerbated by pain/discomfort. Doubt this caused her symptoms above especially as she denies chest pressure/pain (only had numbness) but it is possible DM: A1C 11 -ok for d/c if pt ambulates without symptoms -f/u PMD and cardiology for outpt stress testing -may need further imaging for her radiculopathy symptoms as outpt -continue benazepril 40mg, coreg 6.25mg BID, ASA, lipitor Consultation Date/Type/Reason Admit Date/Time Date of Consultation: Sep 12, 2018 Type of Consult Cardiology Reason for Consultation Chest pain Requesting Provider: KAN PIERCE Date/Time of Note DATE: 09/12/18 TIME: 14:31 Hx of Present Illness 53 yo F with a h/o DM, HTN, who presented with neck pain, left arm numbness, and "chest pain". A poultry helper (RN) was used for history. She notes that yesterday she started to have pain in her let neck radiating down to her left arm as well numbness down her whole arm and left chest wall. She initially descr ibed the chest symptoms as pain but then stated it was not pain or pressure but instead was numbness/tingling. She notes that she fell one year ago and since then has had similar symptoms in her neck and arm but the chest was new this time. No prior cardiac history. She is active at baseline and can walk up a few flights of stairs without any symptoms including chest pain or pressure. No dyspnea, orthopnea, PND, edema. Troponins and EKG have been unremarkable. Her BP was 218/113 on admission and now is low 100s on her normal home regimen. She was given gabapentin and feels that it helped her symptoms. No complaints at this time. per hPI Past Medical History per hPI Home Meds Active Scripts Cholecalciferol (Vitamin D3) (Vitamin D3) 50,000 Unit Capsule, 58237 UNIT PO .QWEDNDAY, #12 CAP Prov:JOSE M SANTIAGO V. CHILDREN'S NURSERY ASSISTANT 09/12/18 Gabapentin* (Gabapentin*) 300 Mg Capsule, 300 MG PO TID, #90 CAP Prov:SANTIAGODERRELLJOSE M V. CHILDREN'S NURSERY ASSISTANT 09/12/18 Reported Medications Insulin Glargine,Hum.rec.anlog (Basaglar Kwikpen U-100) 100 Unit/1 Ml Insuln.pen, 50 UNIT SQ QAM for 30 Days 09/12/18 Carvedilol* (Carvedilol*) 6.25 Mg Tablet, 6.25 MG PO BID for 30 Days, #60 09/12/18 Nateglinide* (Nateglinide*) 60 Mg Tablet, 60 MG PO TID for 30 Days, #90 09/12/18 Simvastatin (Simvastatin) 20 Mg Tablet, 20 MG PO DAILY for 30 Days, #30 09/12/18 Metformin Hcl* (Metformin Hcl*) 500 Mg Tablet, 500 MG PO WITH BREAKFAST DINNE, #60 TAB 07/10/15 Glipizide* (Glipizide*) 10 Mg Tablet, 10 MG PO BID, TAB 07/10/15 Albuterol Sulfate* (Ventolin HFA*) 18 Gm Hfa.aer.ad, 2 PUFF IH Q4H PRN for WHEEZING AND RESP DISTRESS, EA 05/03/14 Benazepril Hcl* (Benazepril Hcl*) 40 Mg Tablet, 40 MG PO DAILY, TAB 05/03/14 Discontinued Reported Medications Metformin* (Glucophage*) 500 Mg Tab, 500 MG PO BID for 30 Days, #60 09/12/18 Sitagliptin* (Januvia*) 100 Mg Tablet, 100 MG PO DAILY, #30 TAB 07/10/15 Simvastatin (Simvastatin) 10 Mg Tablet, 10 MG PO HS, TAB 05/03/14 Metoprolol Tartrate* (Lopressor*) 25 Mg Tab, 25 MG PO DAILY, TAB 05/03/14 Discontinued Scripts Ciprofloxacin Hcl* (Ciprofloxacin Hcl*) 500 Mg Tablet, 500 MG PO BID for 10 Days, TAB Prov:MAIKOL RANDALL PA-C 08/17/17 Phenazopyridine Hcl* (Pyridium*) 200 Mg Tab, 200 MG PO TID PRN for URINARY PAIN, #6 TAB Prov:HUMBERTO LINN PA-C 12/17/16 Cephalexin* (Keflex*) 500 Mg Capsule, 500 MG PO TID for 7 Days, CAP Prov:HUMBERTO LINN PA-C 12/17/16 Hydrocodone/Acetaminophen ([place] 10-325 Tablet) 1 Each Tablet, 1 TAB PO Q6H PRN for PAIN, #7 TAB Prov:ABDIRAHMAN NINO MD 12/06/15 Cephalexin* (Keflex*) 500 Mg Capsule, 500 MG PO QID for 7 Days, CAP Prov:ABDIRAHMAN NINO MD 12/06/15 Sulfamethoxazole-Trimethoprim* (Bactrim* DS) 800-160 Mg Tab, 1 TAB PO BID for 7 Days, TAB Prov:ABDIRAHMAN NINO MD 12/06/15 Sucralfate (Carafate) 1 G Tablet, 1 GM PO Q6, #60 TAB Prov:HUMBERTO JACOME 07/10/15 Ranitidine Hcl* (Zantac*) 150 Mg Tablet, 150 MG PO BID, #60 TAB Prov:HUMBERTO JACOME 07/10/15 Medications Current Medications Ondansetron HCl (Zofran Inj) 4 mg ER BRIDGE PRN IV NAUSEA/VOMITING; Start 09/12/18 at 02:00; Stop 09/13/18 at 01:59 Acetaminophen (Tylenol Tab) 650 mg ER BRIDGE PRN PO .MILD PAIN 1-3 OR TEMP; Start 09/12/18 at 02:00; Stop 09/13/18 at 01:59 Benazepril HCl (Lotensin) 40 mg DAILY PO Last administered on 09/12/18at 10:45; Admin Dose 40 MG; Start 09/12/18 at 09:00 Carvedilol (Coreg) 6.25 mg BID PO Last administered on 09/12/18at 11:13; Admin Dose 6.25 MG; Start 09/12/18 at 09:00 Insulin Glargine (Lantus) 50 units QAM SC Last administered on 09/12/18at 10:54; Admin Dose 50 UNITS; Start 09/12/18 at 09:00 Atorvastatin Calcium (Lipitor) 10 mg DAILY@21 PO ; Start 09/12/18 at 21:00 IV Flush (NS 3 ml) 3 ml PER PROTOCOL IV ; Start 09/12/18 at 02:30 Ondansetron HCl (Zofran Inj) 4 mg Q6H PRN IV NAUSEA/VOMITING; Start 09/12/18 at 02:30 Aspirin (Aspirin) 81 mg DAILY PO Last administered on 09/12/18at 10:44; Admin Dose 81 MG; Start 09/12/18 at 09:00 Nitroglycerin (Nitroglycerin (Sl Tab) 0.4 Mg) 1 tab Q5M PRN SL .CHEST PAIN; Start 09/12/18 at 02:30 Acetaminophen (Tylenol Tab) 650 mg Q6H PRN PO .PAIN 1-3 OR TEMP; Start 09/12/18 at 02:30 Morphine Sulfate (morphine) 2 mg Q4H PRN IV .PAIN 7-10; Start 09/12/18 at 02:30 Docusate Sodium (Colace) 100 mg Q12H PRN PO .CONSTIPATION; Start 09/12/18 at 02:30 Bisacodyl (Dulcolax) 5 mg DAILY PRN PO .CONSTIPATION; Start 09/12/18 at 02:30 Diagnostic Test (Pha) (Accu-Chek) 1 ea 02 XX ; Start 09/13/18 at 02:00 Insulin Aspart (Novolog Insulin Pen) NOVOLOG *MILD* ALGORITHM WITH MEALS BEDTIME SC Last administered on 09/12/18at 12:49; Admin Dose 4 UNIT; Start 09/12/18 at 08:00 Miscellaneous Information 1 ea NOTE XX ; Start 09/12/18 at 03:00 Glucose (Glutose) 15 gm Q15M PRN PO DECREASED GLUCOSE; Start 09/12/18 at 03:00 Glucose (Glutose) 22.5 gm Q15M PRN PO DECREASED GLUCOSE; Start 09/12/18 at 03:00 Dextrose (D50w Syringe) 25 ml Q15M PRN IV DECREASED GLUCOSE; Start 09/12/18 at 03:00 Dextrose (D50w Syringe) 50 ml Q15M PRN IV DECREASED GLUCOSE; Start 09/12/18 at 03:00 Glucagon (Glucagen) 1 mg Q15M PRN IM DECREASED GLUCOSE; Start 09/12/18 at 03:00 Glucose (Glutose) 15 gm Q15M PRN BUCCAL DECREASED GLUCOSE; Start 09/12/18 at 03:00 Insulin Aspart (Novolog Insulin Pen) 5 unit WITH MEALS SC Last administered on 09/12/18at 12:51; Admin Dose 5 UNIT; Start 09/12/18 at 12:00 Gabapentin (Neurontin) 100 mg TID PO Last administered on 09/12/18at 12:47; Admin Dose 100 MG; Start 09/12/18 at 13:00 Allergies: Coded Allergies: No Known Allergy (Unverified , 09/12/18) Social History Alcohol Use: none Smoking Status: Never smoker Drug Use: none Exam/Review of Systems Vital Signs Vitals Vital Signs Date Temp Pulse Resp B/P (MAP) Pulse Ox O2 O2 Flow FiO2 Time Delivery Rate 09/12/18 97.8 93 18 100/68 100 Room Air 14:22 (79) Exam Constitutional: alert, oriented Psych: no complaints, nl mood/affect Head: normocephalic, atraumatic Neck: supple; No jvd Respiratory: clear to auscultation; No crackles/rales Cardiovascular: regular rate and rhythm; No edema, No systolic murmur Gastrointestinal: soft, non-tender; No distended Musculoskeletal: nl extremities to inspection Neurological: nl mental status, nl speech Labs Result Diagram: 09/12/18 0545 09/12/18 0545 Results 24hrs Laboratory Tests Test 09/11/18 21:37 09/11/18 22:07 09/12/18 03:12 09/12/18 05:41 White Blood Count 7.1 # Red Blood Count 3.90 L Hemoglobin 11.8 L Hematocrit 32.7 #L Mean Corpuscular Volume 83.8 Mean Corpuscular 30.3 Hemoglobin Mean Corpuscular 36.1 Hemoglobin Concent Red Cell Distribution 11.5 Width Platelet Count 182 Mean Platelet Volume 8.9 Immature Granulocytes % 0.300 Neutrophils % 43.7 Lymphocytes % 40.7 Monocytes % 9.5 Eosinophils % 5.4 Basophils % 0.4 Nucleated Red Blood 0.0 Cells % Immature Granulocytes # 0.020 Neutrophils # 3.1 Lymphocytes # 2.9 Monocytes # 0.7 Eosinophils # 0.4 Basophils # 0.0 Nucleated Red Blood 0.0 Cells # Prothrombin Time 13.5 Prothrombin Time Ratio 1.1 INR International 1.02 Normalized Ratio Activated 29.4 Partial Thromboplast Time Sodium Level 130 L Potassium Level 3.5 Chloride Level 94 L Carbon Dioxide Level 29 Anion Gap 7 Blood Urea Nitrogen 8 Creatinine 0.40 L Est Glomerular Filtrat > 60 Rate mL/min Glucose Level 111 Calcium Level 9.3 Troponin I < 0.012 < 0.012 Creatine Kinase 72 Creatine Kinase Index 1.4 Creatinine Kinase MB 0.98 (Mass) Vitamin D 1,25-Dihydroxy 19.5 L Test 09/12/18 05:45 09/12/18 10:23 09/12/18 10:52 09/12/18 12:47 White Blood Count 6.8 Red Blood Count 4.09 L Hemoglobin 12.5 Hematocrit 34.6 L Mean Corpuscular Volume 84.6 Mean Corpuscular 30.6 Hemoglobin Mean Corpuscular 36.1 Hemoglobin Concent Red Cell Distribution 11.7 Width Platelet Count 210 Mean Platelet Volume 9.0 Immature Granulocytes % 0.300 Neutrophils % 58.8 Lymphocytes % 28.0 Monocytes % 7.6 Eosinophils % 4.9 Basophils % 0.4 Nucleated Red Blood 0.0 Cells % Immature Granulocytes # 0.020 Neutrophils # 4.0 Lymphocytes # 1.9 Monocytes # 0.5 Eosinophils # 0.3 Basophils # 0.0 Nucleated Red Blood 0.0 Cells # Sodium Level 140 Potassium Level 4.0 Chloride Level 106 # Carbon Dioxide Level 27 Anion Gap 7 Blood Urea Nitrogen 5 L Creatinine 0.37 L Est Glomerular Filtrat > 60 Rate mL/min Glucose Level 138 Hemoglobin A1c 11.0 H Calcium Level 9.3 Magnesium Level 2.0 Iron Level 82 Total Iron Binding 332 Capacity Percent Iron Saturation 25 Ferritin 223.0 Total Bilirubin 0.8 Direct Bilirubin 0.00 Indirect Bilirubin 0.8 Aspartate Amino 21 Transf (AST/SGOT) Alanine 23 Aminotransferase (ALT/SG PT) Alkaline Phosphatase 105 Total Protein 7.4 Albumin 4.1 Globulin 3.30 H Albumin/Globulin Ratio 1.24 Triglycerides Level 113 Cholesterol Level 160 LDL Cholesterol, 91 Calculated HDL Cholesterol 46 Cholesterol/HDL Ratio 3.4 Thyroid Stimulating 1.850 Hormone (TSH) Creatine Kinase 60 Creatine Kinase Index 1.3 Creatinine Kinase MB 0.76 (Mass) Troponin I < 0.012 Bedside Glucose 149 168 Medications Medications Current Medications Ondansetron HCl (Zofran Inj) 4 mg ER BRIDGE PRN IV NAUSEA/VOMITING; Start 09/12/18 at 02:00; Stop 09/13/18 at 01:59 Acetaminophen (Tylenol Tab) 650 mg ER BRIDGE PRN PO .MILD PAIN 1-3 OR TEMP; Start 09/12/18 at 02:00; Stop 09/13/18 at 01:59 Benazepril HCl (Lotensin) 40 mg DAILY PO Last administered on 09/12/18at 10:45; Admin Dose 40 MG; Start 09/12/18 at 09:00 Carvedilol (Coreg) 6.25 mg BID PO Last administered on 09/12/18at 11:13; Admin Dose 6.25 MG; Start 09/12/18 at 09:00 Insulin Glargine (Lantus) 50 units QAM SC Last administered on 09/12/18at 10:54; Admin Dose 50 UNITS; Start 09/12/18 at 09:00 Atorvastatin Calcium (Lipitor) 10 mg DAILY@21 PO ; Start 09/12/18 at 21:00 IV Flush (NS 3 ml) 3 ml PER PROTOCOL IV ; Start 09/12/18 at 02:30 Ondansetron HCl (Zofran Inj) 4 mg Q6H PRN IV NAUSEA/VOMITING; Start 09/12/18 at 02:30 Aspirin (Aspirin) 81 mg DAILY PO Last administered on 09/12/18at 10:44; Admin Dose 81 MG; Start 09/12/18 at 09:00 Nitroglycerin (Nitroglycerin (Sl Tab) 0.4 Mg) 1 tab Q5M PRN SL .CHEST PAIN; Start 09/12/18 at 02:30 Acetaminophen (Tylenol Tab) 650 mg Q6H PRN PO .PAIN 1-3 OR TEMP; Start 09/12/18 at 02:30 Morphine Sulfate (morphine) 2 mg Q4H PRN IV .PAIN 7-10; Start 09/12/18 at 02:30 Docusate Sodium (Colace) 100 mg Q12H PRN PO .CONSTIPATION; Start 09/12/18 at 02:30 Bisacodyl (Dulcolax) 5 mg DAILY PRN PO .CONSTIPATION; Start 09/12/18 at 02:30 Diagnostic Test (Pha) (Accu-Chek) 1 ea 02 XX ; Start 09/13/18 at 02:00 Insulin Aspart (Novolog Insulin Pen) NOVOLOG *MILD* ALGORITHM WITH MEALS BEDTIME SC Last administered on 09/12/18at 12:49; Admin Dose 4 UNIT; Start 09/12/18 at 08:00 Miscellaneous Information 1 ea NOTE XX ; Start 09/12/18 at 03:00 Glucose (Glutose) 15 gm Q15M PRN PO DECREASED GLUCOSE; Start 09/12/18 at 03:00 Glucose (Glutose) 22.5 gm Q15M PRN PO DECREASED GLUCOSE; Start 09/12/18 at 03:00 Dextrose (D50w Syringe) 25 ml Q15M PRN IV DECREASED GLUCOSE; Start 09/12/18 at 03:00 Dextrose (D50w Syringe) 50 ml Q15M PRN IV DECREASED GLUCOSE; Start 09/12/18 at 03:00 Glucagon (Glucagen) 1 mg Q15M PRN IM DECREASED GLUCOSE; Start 09/12/18 at 03:00 Glucose (Glutose) 15 gm Q15M PRN BUCCAL DECREASED GLUCOSE; Start 09/12/18 at 03:00 Insulin Aspart (Novolog Insulin Pen) 5 unit WITH MEALS SC Last administered on 09/12/18at 12:51; Admin Dose 5 UNIT; Start 09/12/18 at 12:00 Gabapentin (Neurontin) 100 mg TID PO Last administered on 09/12/18at 12:47; Admin Dose 100 MG; Start 09/12/18 at 13:00 AMARI MARTINEZ Sep 12, 2018 14:42
[2018-09-12] MEDS ORDERED: ATORVASTATIN 10 MG TAB PO SCH (21:00)
[2018-09-13] MEDS ORDERED: ACCU-CHEK XX SCH (02:00)
== END 2018-09-12 14:40 | disposition home or self-care (01) ==
LOC: E/R 20:41 → CANBEDREQ 09-12 14:33 → E/R 09-12 14:40
DX: R07.9 Chest pain, unspecified (principal); I10 Essential (primary) hypertension; E11.9 Type 2 diabetes mellitus without complications; Z79.4 Long term (current) use of insulin
CPT/HCPCS: 36415; 70450; 71045; 80048; 80053; 80061; 82306; 82550; 82553; 82607; 82652; 82728; 82962; 83036; 83540; 83735; 84443; 84484; 85025; 85610; 85730; 93005; 93306; 96372; 96374; J0360; J1815; J7040; Z7502; Z7610